=== PATIENT | male | born 1990 | race Caucasian/White ===

== ENCOUNTER 2017-06-28 13:18 | Emergency (ER) | payer MEDICAID ==
[~2017-06-28] VITALS: Ht 182.9 cm; Wt 106.6 kg
[2017-06-28 15:18] VITALS: BP 144/82
== END 2017-06-28 15:18 | disposition home or self-care (01) ==
LOC: ED 13:18
DX: S29.011A Strain of muscle and tendon of front wall of thorax, initial encounter (principal); S09.90XA Unspecified injury of head, initial encounter; R03.0 Elevated blood-pressure reading, without diagnosis of hypertension; W17.89XA Other fall from one level to another, initial encounter; Y93.89 Activity, other specified; Y92.89 Other specified places as the place of occurrence of the external cause; Y99.8 Other external cause status
CPT/HCPCS: J3010